=== PATIENT | male | born 1965 | race African-American/Black ===

== ENCOUNTER 2017-12-31 11:37 | Observation (INO) | payer OTHER ==
[~2017-12-31] VITALS: Ht 190.5 cm; Wt 125.0 kg
[2017-12-31] MEDS ORDERED: ASPIRIN 81 MG TABLET CHEW ONE (12:20)
[2017-12-31] MEDS ORDERED: KETOROLAC 30 MG/1 ML ONE (12:20)
[2017-12-31] MEDS ORDERED: COLCHICINE 0.6 MG TABLET ONE (12:20)
[2017-12-31] MEDS ORDERED: SODIUM CHLORIDE FLUSH 10ML SYR IVF ONE (12:30)
[2017-12-31] MEDS ORDERED: SODIUM CHLORIDE 0.9% 1,000ML IVBOLUS ONE (12:30)
[2017-12-31] MEDS ORDERED: ASPIRIN 81 MG TABLET CHEW PO ONE (12:30)
[2017-12-31] MEDS ORDERED: KETOROLAC 30 MG/1 ML IVPush ONE (12:30)
[2017-12-31] MEDS ORDERED: COLCHICINE 0.6 MG TABLET PO ONE (12:30)
[2017-12-31 12:48] LABS: BASOPHILS % (AUTO) 0 % (0-1); EOSINOPHILS % (AUTO) 1 % (1-7); LYMPHOCYTES % (AUTO) 14 % (22-44); MD NO; MEAN CORPUSCULAR HEMOGLOBIN 30.1 pg (27.5-34.5); MEAN CORPUSCULAR HGB CONC 33.7 g/dL (33.2-36.2); MEAN CORPUSCULAR VOLUME 89.3 fL (81-97); MEAN PLATELET VOLUME 8.5 fL (7.4-10.4); MONOCYTES # (AUTO) 0.25 x10^3/uL (0.2-0.8); MONOCYTES % (AUTO) 2 % (2-9); NEUTROPHILS # (AUTO) 9.31 x10^3/uL (1.8-6.8); NEUTROPHILS % (AUTO) 83 % (42-75); PLATELET COUNT 275 x10^3/uL (130-400); RED BLOOD COUNT 5.29 x10^6/uL (4.38-5.82); RED CELL DISTRIBUTION WIDTH 13.9 % (9.4-14.8)
[2017-12-31 12:51] LABS: HCT (SEDRATE) 47.3 % (39.2-51.8)
[2017-12-31 13:01] LABS: ANION GAP 6 mmol/L (5-15); CHLORIDE 104 mmol/L (98-107)
[2017-12-31 13:08] LABS: CREATININE 1.41 mg/dL (0.7-1.3); TROPONIN I < 0.015 ng/mL (0.000-0.045)
[2017-12-31 13:14] LABS: THYROID STIMULATING HORMONE 0.935 mIU/L (0.358-3.740)
[2017-12-31] MEDS ORDERED: MORPHINE SULFATE 4 MG/ML, 1ML ONE (13:25)
[2017-12-31] MEDS ORDERED: ONDANSETRON 2MG/ML, 2ML ONE (13:25)
[2017-12-31] MEDS ORDERED: LABETALOL 5MG/ML, 20ML ONE (13:30)
[2017-12-31] MEDS ORDERED: LABETALOL 5MG/ML, 20ML IVPush ONE (13:30)
[2017-12-31] MEDS ORDERED: morphine SULFATE 10 MG/ML, 1ML IVPush ONE (13:30)
[2017-12-31] MEDS ORDERED: ONDANSETRON 2MG/ML, 2ML IVPush ONE (13:30)
[2017-12-31] MEDS ORDERED: MORPHINE SULFATE 4 MG/ML, 1ML IVPush PRN (13:30)
[2017-12-31] MEDS ORDERED: morphine SULFATE 10 MG/ML, 1ML ONE (14:18)
[2017-12-31] MEDS ORDERED: HYDROmorphone 2 MG/ML, 1ML ONE (14:37)
[2017-12-31 15:06] VITALS: BP 175/121
[2017-12-31] MEDS ORDERED: CARVEDILOL 6.25 MG TABLET ONE (15:59)
[2017-12-31] MEDS ORDERED: ACETAMINOPHEN 325 MG TABLET PO PRN (16:00)
[2017-12-31] MEDS ORDERED: ONDANSETRON ODT 4 MG PO PRN (16:00)
[2017-12-31] MEDS ORDERED: NITROGLYCERIN 0.4 MG BOTTLE (25 TABS) SL PRN (16:00)
[2017-12-31] MEDS ORDERED: NITROGLYCERIN 0.4 MG/SPRAY SL PRN (16:00)
[2017-12-31] MEDS ORDERED: ONDANSETRON 2MG/ML, 2ML IVPush PRN (16:00)
[2017-12-31] MEDS ORDERED: NICOTINE 21 MG/24 HR PATCH.TD24 TD SCH (16:00)
[2017-12-31] MEDS ORDERED: ENOXAPARIN 40 MG/0.4 ML SQ SCH (16:00)
[2017-12-31] MEDS ORDERED: hydrALAzine 20 MG/ML, 1ML IVPush PRN (16:00)
[2017-12-31] MEDS ORDERED: morphine SULFATE 10 MG/ML, 1ML IVPush PRN (16:00)
[2017-12-31] MEDS: CARVEDILOL 6.25 MG TABLET PO SCH (16:04)
[2017-12-31] MEDS: HYDROcodone/APAP 5/325 TABLET PO PRN ×2 (16:05→19:57)
[2017-12-31 16:47] LABS: HEMOGLOBIN A1C 6.7 % (4.2-6.3)
[2017-12-31 18:09] VITALS: BP 156/107
[2017-12-31 18:41] LABS: TROPONIN I < 0.015 ng/mL (0.000-0.045)
[2017-12-31 19:35] VITALS: BP 168/107
[2017-12-31] MEDS: FAMOTIDINE 20 MG TABLET PO SCH (19:57)
[2017-12-31 23:47] VITALS: BP 155/105
[2018-01-01 00:45] LABS: TROPONIN I < 0.015 ng/mL (0.000-0.045)
[2018-01-01] MEDS: HYDROcodone/APAP 5/325 TABLET PO PRN ×4 (03:56→12:12)
[2018-01-01] MEDS: CARVEDILOL 6.25 MG TABLET PO SCH (03:57)
[2018-01-01 05:29] LABS: BASOPHILS # (AUTO) 0.08 x10^3/uL (0-0.1); BASOPHILS % (AUTO) 1 % (0-1); EOSINOPHILS # (AUTO) 0.07 x10^3/uL (0-0.4); EOSINOPHILS % (AUTO) 1 % (1-7); LYMPHOCYTES # (AUTO) 2.52 x10^3/uL (1-3.4); LYMPHOCYTES % (AUTO) 25 % (22-44); MD NO; MEAN CORPUSCULAR HEMOGLOBIN 30.2 pg (27.5-34.5); MEAN CORPUSCULAR HGB CONC 33.8 g/dL (33.2-36.2); MEAN CORPUSCULAR VOLUME 89.3 fL (81-97); MEAN PLATELET VOLUME 8.8 fL (7.4-10.4); MONOCYTES # (AUTO) 0.68 x10^3/uL (0.2-0.8); MONOCYTES % (AUTO) 7 % (2-9); NEUTROPHILS # (AUTO) 6.67 x10^3/uL (1.8-6.8); NEUTROPHILS % (AUTO) 67 % (42-75); PLATELET COUNT 265 x10^3/uL (130-400); RED BLOOD COUNT 4.75 x10^6/uL (4.38-5.82); RED CELL DISTRIBUTION WIDTH 13.4 % (9.4-14.8)
[2018-01-01 05:45] LABS: CHLORIDE 104 mmol/L (98-107)
[2018-01-01 06:05] LABS: ALANINE AMINOTRANSFERASE 19 U/L (12-78); ALBUMIN 3.6 g/dL (3.4-5.0); ALKALINE PHOSPHATASE 74 U/L (45-117); ANION GAP 8 mmol/L (5-15); BILIRUBIN,TOTAL 0.6 mg/dL (0.2-1.0); CALCIUM 8.4 mg/dL (8.5-10.1); CHOL/HDL RATIO 5.9; CHOLESTEROL, TOTAL 247 mg/dL (140-239); CREATININE 1.27 mg/dL (0.7-1.3); HDL CHOL % 17 % (26-37); HDL CHOLESTEROL (DIRECT) 42 mg/dL (40-60); LDL CHOLESTEROL,CALCULATED 168 mg/dL (54-169); TOTAL PROTEIN 7.3 g/dL (6.4-8.2); TRIGLYCERIDES 187 mg/dL (50-200); VLDL CHOLESTEROL 37 mg/dL (0-25)
[2018-01-01] MEDS ORDERED: hydrALAzine 20 MG/ML, 1ML IVPush PRN (08:00)
[2018-01-01] MEDS: FAMOTIDINE 20 MG TABLET PO SCH (08:18)
[2018-01-01 08:19] VITALS: BP 165/113
[2018-01-01] MEDS ORDERED: REGADENOSON 0.4 MG/5 ML SYRINGE ONE (08:20)
[2018-01-01] MEDS ORDERED: ASPIRIN 81 MG TABLET EC PO SCH (09:00)
[2018-01-01 10:13] VITALS: BP 155/95
[2018-01-01] MEDS ORDERED: AMLODIPINE 5 MG TABLET PO SCH (11:00)
[2018-01-01 13:16] VITALS: BP 153/95
[2018-01-01 14:00] VITALS: BP 148/99
[2018-01-01] MEDS ORDERED: CARV6.2512 PO (15:31)
[2018-01-01] MEDS ORDERED: ATOR20TA9 PO (15:31)
[2018-01-01] MEDS ORDERED: AMLO5TAB2 PO (15:31)
[2018-01-01] MEDS ORDERED: METH4TAB2 PO (15:31)
[2018-01-01] MEDS ORDERED: ASPI-496 PO (15:32)
[2018-01-01] MEDS ORDERED: ATORVASTATIN 20 MG TABLET PO SCH (21:00)
== END 2018-01-01 17:55 | disposition home or self-care (01) ==
LOC: ED 13:13 → INTOOBSV 14:20 → 5SO 14:20 → UNDODISIN 01-01 17:55
PROVIDERS: ADMIT Internal Medicine; ATTEND Internal Medicine
DX: R07.9 Chest pain, unspecified (principal); I11.9 Hypertensive heart disease without heart failure; K21.9 Gastro-esophageal reflux disease without esophagitis; M10.9 Gout, unspecified; D72.829 Elevated white blood cell count, unspecified; N28.9 Disorder of kidney and ureter, unspecified; E78.5 Hyperlipidemia, unspecified; E11.9 Type 2 diabetes mellitus without complications; Z72.0 Tobacco use
CPT/HCPCS: 36415; 71045; 73610; 78452; 80048; 80053; 80061; 82040; 83036; 83880; 84436; 84443; 84484; 84550; 85025; 85379; 85651; 93005; 93017; 93306; 93971; 96361; 96374; 96375; 96376; 99285; A9502; C9898; G0378; J0360; J1885; J2270; J2405; J2785; J7030; J7512

== ENCOUNTER 2018-04-13 17:17 | Emergency (ER) | payer OTHER ==
[~2018-04-13] VITALS: Ht 190.5 cm; Wt 128.8 kg
[~2018-04-13 17:17] MED LIST: AMLO5TAB2 PO; ASPI-496 PO; ATOR20TA9 PO; CARV6.2512 PO; METH4TAB2 PO
[2018-04-13 18:17] LABS: MICROSCOPIC AUTO
[2018-04-13 18:18] LABS: CULTURE INDICATED? NO
[2018-04-13 18:20] LABS: BASOPHILS # (AUTO) 0.02 x10^3/uL (0-0.1); BASOPHILS % (AUTO) 0 % (0-1); EOSINOPHILS # (AUTO) 0.05 x10^3/uL (0-0.4); EOSINOPHILS % (AUTO) 1 % (1-7); LYMPHOCYTES # (AUTO) 1.99 x10^3/uL (1-3.4); LYMPHOCYTES % (AUTO) 24 % (22-44); MD NO; MEAN CORPUSCULAR HEMOGLOBIN 29.6 pg (27.5-34.5); MEAN CORPUSCULAR HGB CONC 33.7 g/dL (33.2-36.2); MEAN CORPUSCULAR VOLUME 87.7 fL (81-97); MEAN PLATELET VOLUME 8.4 fL (7.4-10.4); MONOCYTES # (AUTO) 0.31 x10^3/uL (0.2-0.8); MONOCYTES % (AUTO) 4 % (2-9); NEUTROPHILS # (AUTO) 5.92 x10^3/uL (1.8-6.8); NEUTROPHILS % (AUTO) 71 % (42-75); PLATELET COUNT 278 x10^3/uL (130-400); RED BLOOD COUNT 5.53 x10^6/uL (4.38-5.82); RED CELL DISTRIBUTION WIDTH 14.1 % (9.4-14.8)
[2018-04-13] MEDS ORDERED: LABETALOL 5MG/ML, 20ML ONE (18:23)
[2018-04-13] MEDS ORDERED: ASPIRIN 81 MG TABLET CHEW ONE (18:23)
[2018-04-13] MEDS ORDERED: ACETAMINOPHEN 500 MG TABLET ONE (18:24)
[2018-04-13] MEDS ORDERED: ACETAMINOPHEN 500 MG TABLET PO ONE (18:30)
[2018-04-13] MEDS ORDERED: ASPIRIN 81 MG TABLET CHEW PO ONE (18:30)
[2018-04-13] MEDS ORDERED: LABETALOL 5MG/ML, 20ML IVPush ONE (18:30)
[2018-04-13] MEDS ORDERED: SODIUM CHLORIDE FLUSH 10ML SYR IVF ONE (18:30)
[2018-04-13 18:34] LABS: ALBUMIN 4.1 g/dL (3.4-5.0); ANION GAP 7 mmol/L (5-15); CALCIUM 9.6 mg/dL (8.5-10.1); CHLORIDE 102 mmol/L (98-107)
[2018-04-13 18:38] LABS: ALANINE AMINOTRANSFERASE 23 U/L (12-78); ALKALINE PHOSPHATASE 82 U/L (45-117); BILIRUBIN,TOTAL 0.7 mg/dL (0.2-1.0); CREATININE 1.21 mg/dL (0.7-1.3); TOTAL PROTEIN 8.3 g/dL (6.4-8.2)
[2018-04-13 18:41] LABS: TROPONIN I < 0.015 ng/mL (0.000-0.045)
[2018-04-13 19:42] VITALS: BP 137/91
== END 2018-04-13 19:45 | disposition home or self-care (01) ==
LOC: ED 18:00
DX: N18.2 Chronic kidney disease, stage 2 (mild) (principal); I12.9 Hypertensive chronic kidney disease with stage 1 through stage 4 chronic kidney disease, or unspecified chronic kidney disease; E78.00 Pure hypercholesterolemia, unspecified; F17.200 Nicotine dependence, unspecified, uncomplicated
CPT/HCPCS: 36415; 71045; 80053; 81001; 83690; 84484; 85025; 93005; 96374